=== PATIENT | male | born 1955 | race Caucasian/White ===

== ENCOUNTER 2019-03-10 18:38 | Observation (INO) ==
[2019-03-10 19:19] LABS: BASO# 0.02 X1000 (0.0-0.2); BASO% 0.2 % (0.0-0.8); EOS# 0.18 X1000 (0.0-0.7); HEMATOCRIT 38.9 % (42.0-52.0); HEMOGLOBIN 12.9 g/dL (14.0-18.0); LYMPH# 2.38 X1000 (1.2-3.4); MCH 29.9 PG (27-31); MCHC 33.2 g/dL (33-37); MONO# 0.76 X1000 (0.11-0.59); MONO% 8.6 % (1.7-9.3); MPV 11.9 FL (7.4-10.4); NEUT# 5.46 X1000 (1.4-6.5); NEUT% 62.2 % (42.2-75.2); PLT 213 X1000 (130-400); RBC 4.32 XMIL (4.7-6.1); RDW 15.1 % (11.5-14.5)
[2019-03-10] MEDS ORDERED: D50W SYRINGE IV ONE (19:26)
[2019-03-10 19:32] LABS: ALB/GLOB RATIO 1.5; ALBUMIN 4.4 g/dL (3.5-5.0); CALCIUM 9.4 mg/dL (8.8-10.2); CREATININE 2.9 mg/dL (0.7-1.2); TOTAL BILIRUBIN 0.24 mg/dL (0.20-1.00); TOTAL PROTEIN 7.4 g/dL (6.3-8.3)
[2019-03-10 21:38] LABS: URINE SOURCE VOIDED
[2019-03-10 21:45] LABS: BILIRUBIN URINE NEGATIVE (NEGATIVE); BLOOD URINE NEGATIVE (NEGATIVE); COLOR STRAW; GLUCOSE URINE NEGATIVE (NEGATIVE); KETONE URINE NEGATIVE (NEGATIVE); LEUKOCYTES URINE NEGATIVE (NEGATIVE); NITRITE URINE NEGATIVE (NEGATIVE); PH URINE 5.5; PROTEIN URINE NEGATIVE (NEGATIVE); SP GRAVITY URINE 1.013; TURBIDITY URINE CLEAR (CLEAR); UR EPITHELIAL CELLS <10 /HPF (<10); URINE BACTERIA NEGATIVE /HPF; URINE RBC <10 /HPF (<10); URINE WBC <10 /HPF (<10); UROBILINOGEN URINE NORMAL (NORMAL)
--- NOTE | 2019-03-10 22:50 | PROVIDER DOCUMENTATION ---
This chart was entered by Paulette Lopez Scribe, acting as scribe for Sanchez Michelle MD. HPI-General Adult - General Chief Complaint: Fatigue Stated Complaint: "FEELS BAD" Time Seen by Provider: 03/10/19 20:05 Source: patient Allergies/Adverse Reactions: Patient Allergies Allergy/AdvReac Type Severity Reaction Status Date / Time No Known Allergies Allergy Verified 03/10/19 19:48 Home Medications: Home Medication List Medication Instructions Recorded Confirmed Last Taken Type AMLODIPINE/BENAZEpril [Lotrel 10/23 1 each PO DAILY 12/11/13 03/10/19 03/10/19 08:00 History mg] Glimepiride 4 mg PO DAILY 12/11/13 03/10/19 03/10/19 08:00 History Tamsulosin [Flomax] 0.4 mg PO DAILY #10 capsule 12/11/13 03/10/19 03/10/19 08:00 Rx Allopurinol [Zyloprim] 1 dose PO DAILY 03/10/19 03/10/19 03/10/19 08:00 History Aspirin 1 dose PO DAILY 03/10/19 03/10/19 03/10/19 08:00 History Pioglitazone [Actos] 1 dose PO DAILY 03/10/19 03/10/19 03/10/19 08:00 History Simvastatin 1 dose PO DAILY 03/10/19 03/10/19 Unknown History Triamterene/Hydrochlorothiazid 1 dose PO DAILY 03/10/19 03/10/19 03/10/19 08:00 History [Triamterene-Hctz 37.5-25 mg Cp] - History of Present Illness -Gen Adult Nature of Presenting Problems: Pt is 63/m presenting to ED w/ dizziness that has worsened throughout the day, sts that he feels dizzy when he bends over and off balance when he stands back up. Pt has NIDDM and FSBS was 46. Pt was given D50 and has eaten crackers and had some orange juice. Sts that he has been following a keto like diet recently as well. Last A1C was 6.1. Location of Pain/Injury: reports: generalized Pain Radiation: reports: no radiation Quality of Pain: reports: none Severity: reports: moderate Onset/Duration: reports: this morning Timing: reports: improving Context/Activities at Onset: reports: none Modifying Factors: improves with: eating Associated Symptoms: reports: dizziness. denies: nausea, shortness of breath, weakness, trouble walking Similar Symptoms Previously?: No Recently seen or treated by another doctor?: No - Diabetes Related Context Context: reports: low blood sugar (46) Review of Systems - Adult - REVIEW OF SYSTEMS - ADULT Constitutional: reports: no symptoms reported. denies: chills, fever Eyes: reports: no symptoms reported Ears, Nose, Mouth & Throat: reports: no symptoms reported Cardiovascular: reports: no symptoms reported. denies: chest pain Respiratory: denies: shortness of breath, wheezing Gastrointestinal: reports: no symptoms reported. denies: abdominal pain, nausea, vomiting Genitourinary: reports: no symptoms reported Musculoskeletal: reports: no symptoms reported Integumentary: reports: no symptoms reported Neurological: reports: dizziness/vertigo. denies: headache/migraines, slurred speech, syncope Psychiatric: reports: no symptoms reported Endocrine: reports: no symptoms reported Hematologic/Lymphatic: reports: no symptoms reported Allergic/Immunologic: reports: no symptoms reported All Other Systems: Reviewed and Negative Past History - Adult - PAST MEDICAL HISTORY-ADULT Review of Records: reports: Old Records Reviewed, Nursing Assessment Review, Medications Reviewed, Social history reviewed & non-contributory. Major Childhood Illnesses: reports: denies history Cardiovascular: reports: HTN, hyperlipidemia Respiratory: reports: denies history Gastrointestinal: reports: denies history Obstetrical/Gynecological: reports: denies history Genitourinary: reports: denies history Musculoskeletal: reports: denies history Neurological: reports: denies history Endocrine/Immune: reports: Diabetes Other Conditions: reports: denies history - PRIOR SURGERIES/PROCEDURES Surgical/Procedure History: reports: hernia repair, orthopedic (extremity) - IMMUNIZATION STATUS Childhood Immunizations: See Nurse Assessment Flu Vaccine: See Nurse Assessment - FAMILY HISTORY Family History: reviewed, not pertinent - SOCIAL HISTORY Smoking: chew Provider spent 3-5 mins advising pt. on dangers of tobacco.: Discussed manners to quit use, and f/u contacts for add'l counseling. Substance Use: none/never Alcohol Use Frequency: occasionally Living Situation: family Physical Exam-General - PHYSICAL EXAM-ADULT Initial Vital Signs Reviewed: Yes - CONSTITUTIONAL General Appearance: appears well, alert, no apparent distress, obese - EYES Eyes: PERRL/EOMI, pink conjunctivae - HEAD, EARS, NOSE, MOUTH & THROAT HENMT: normocephalic/atraumatic, moist mucous membranes, normal ENT inspection - NECK Neck: non-tender, full range of motion, supple, normal inspection - RESPIRATORY Respiratory: lungs clear - CARDIOVASCULAR Cardiovascular: regular rate, rhythm - GASTROINTESTINAL (ABDOMEN) Abdominal Exam: soft - MUSCULOSKELETAL Back Exam: normal inspection Extremity: normal range of motion, non-tender, normal gait, normal inspection - SKIN Integumentary: normal color, warm/dry - NEUROLOGIC Neurologic: grossly normal - PSYCHIATRIC Psych/Mental Status: normal mood/affect, normal thought content, normal thought process, oriented x 3 Progress - PLAN OF CARE/RESULTS Progress/Plan/Lab Results: Vital Signs - 8 hr 03/10/19 18:43 Temperature 97.5 F L Pulse Rate 95 H Respiratory Rate 16 Blood Pressure 129/69 O2 Sat by Pulse Oximetry 97 Laboratory Results - last 24 hr 03/10/19 03/10/19 03/10/19 18:45 18:45 19:23 WBC 8.80 RBC 4.32 L Hgb 12.9 L Hct 38.9 L MCV 90.0 MCH 29.9 MCHC 33.2 RDW Std Deviation 15.1 H Plt Count 213 MPV 11.9 H Immature Gran % (Auto) 0.0 Neut % (Auto) 62.2 Lymph % (Auto) 27.0 Crawford % (Auto) 8.6 Eos % (Auto) 2.0 Baso % (Auto) 0.2 Immature Gran # (Auto) 0.00 Neut # (Auto) 5.46 Lymph # (Auto) 2.38 Crawford # (Auto) 0.76 H Eos # (Auto) 0.18 Baso # (Auto) 0.02 Sodium 141 Potassium 4.0 Chloride 110 H Carbon Dioxide 18 L Anion Gap 13 BUN 68 H Creatinine 2.9 H Estimated GFR/1.73 m2 22 BUN/Creatinine Ratio 23 Glucose 48 L POC Glucose 46 L Calculated Osmolality 298 Calcium 9.4 Total Bilirubin 0.24 AST 25 ALT 22 Alkaline Phosphatase 85 Total Protein 7.4 Albumin 4.4 Globulin 3.0 Albumin/Globulin Ratio 1.5 Orders Category Date Time Status CBC WITH ELECTRONIC DIFF [HEME] Stat Lab 03/10/19 18:45 Completed COMPREHENSIVE METABOLIC PANEL [CHEM] Stat Lab 03/10/19 18:45 Completed URINALYSIS [URINALYSIS] Stat Lab 03/10/19 18:49 Uncollected Dextrose 50% Syringe [D50w Syringe] Med 03/10/19 19:26 Discontinued 50 ml IV NOW ONE Generalized Adult Illness >60 Stat Oth 03/10/19 18:48 Ordered EKG [EKG] Stat Ther 03/10/19 18:48 Ordered Result Diagrams: 03/10/19 18:45 03/10/19 18:45 Departure - Departure Date of Disposition Decision: 03/10/19 Time of Disposition Decision: 22:50 DIAGNOSIS: Hypoglycemia, DELORES (acute kidney injury) Disposition: ADMITTED INPATIENT 09 Certified Medical Emergency: Emergent Condition: Stable Referrals and Follow-Ups: Mike Crowe MD [Primary Care Provider] - - Critical Care Note This patient required my direct & personal management of CC.: No Attestation - Physician/ EMILY Attestation Patient care was provided by Advanced Practice Provider:: No The physician spent face to face time with patient:: Yes Advanced Practice Provider documentation review:: Supervising physician onsite and consulted in the evaluation and care of this patient. The physician did have a face to face encounter with the patient. This chart was documented by the indicated scribe, (Paulette Lopez, Madhaviibjosey) and accurately reflects the services I performed and decisions made by me, Sanchez Michelle MD, as attested by the provider's signature.
[2019-03-10] MEDS ORDERED: ZOFRAN IV PRN (23:39)
[2019-03-10] MEDS ORDERED: TYLENOL PO PRN (23:39)
[2019-03-11] MEDS: NS 1,000 ML IV SCH ×2 (00:56→08:54)
--- NOTE | 2019-03-11 03:12 | HISTORY AND PHYSICAL ---
CHIEF COMPLAINT: Hypoglycemia. HISTORY OF PRESENT ILLNESS: Patient is a very pleasant 63-year-old male who unfortunately earlier had an episode of being off balance, dizzy and irritability. He has a known history of diabetes for which he takes metformin and glimepiride. He apparently has been changing his diet. He has been eating mainly an Atkins diet, but does not check his blood sugar at home. He became irritated, agitated, very difficult to deal with. He became quite argumentative. They checked his blood sugar and it was 46. Apparently, his last A1c was 6.1. ALLERGIES: No known drug allergies. MEDICATIONS: Lotrel 520 daily, glimepiride 4 mg daily, Flomax 0.4 daily, allopurinol, aspirin, Actos, simvastatin, triamterene/hydrochlorothiazide and patient also notes that he takes metformin. PAST MEDICAL HISTORY: Significant for diabetes, hypertension, hyperlipidemia. He has had a hernia repair and orthopedic surgery in the past. He has gout and BPH. REVIEW OF SYSTEMS: As noted above. PHYSICAL EXAMINATION: GENERAL: Currently, he is awake, alert. He is in no current respiratory distress. He is very pleasant to talk with. HEENT: Normocephalic, atraumatic. DONALD. NECK: Supple. No JVD. CARDIOVASCULAR: Regular rate. No murmurs. CHEST: Clear and nonlabored. ABDOMEN: Soft, nondistended, obese, nontender. EXTREMITIES: Moves all extremities. NEUROLOGIC: No focal neurological changes. SKIN: Warm and dry. No rashes. LABORATORIES: CBC, CMP reviewed. Glucose was 48 initially, currently 140s. Creatinine 2.9 with his most recent baseline per the family around 1.5 to 1.9. ASSESSMENT: 1. Acute on chronic renal failure. 2. Metabolic acidosis. 3. Hypoglycemia iatrogenically caused secondary to dietary changes and glimepiride. 4. Diabetes with fairly good home control with an A1c at 6.1. 5. Hypertension. 6. Gout. 7. Hyperlipidemia. 8. Benign prostatic hypertrophy. PLAN: We are going to admit patient to the hospital, place him on fingersticks. We will restart IV fluids. He does have a history of kidney failure for which he is supposed to see Dr. Kumar in a few days. If his kidneys are improved in the morning, we can discharge him home. If not, certainly may need to consider consulting Dr. Kumar at that point. We are going to restart his home medications. Given his kidney function, if he is in fact still on metformin we are going to hold this. We will hold his diuretics as well as his glimepiride. Discussed with patient the importance of staying away from anti-inflammatories and we will follow. cc: MD Mike Mcmullen MD
[2019-03-11 05:43] LABS: HEMATOCRIT 36.4 % (42.0-52.0); HEMOGLOBIN 11.9 g/dL (14.0-18.0); MCH 29.7 PG (27-31); MCHC 32.7 g/dL (33-37); MCV 90.8 FL (81-99); MPV 11.4 FL (7.4-10.4); RBC 4.01 XMIL (4.7-6.1); RDW 15.3 % (11.5-14.5); WBC 5.57 X1000 (4.8-10.8)
[2019-03-11 06:17] LABS: ALB/GLOB RATIO 1.6; ALBUMIN 3.9 g/dL (3.5-5.0); CALCIUM 9.2 mg/dL (8.8-10.2); CREATININE 2.7 mg/dL (0.7-1.2); POTASSIUM 4.4 mmol/L (3.5-5.1); TOTAL BILIRUBIN 0.32 mg/dL (0.20-1.00); TOTAL PROTEIN 6.4 g/dL (6.3-8.3)
[2019-03-11] MEDS ORDERED: HUMALOG SUBQ SCH (07:00)
[2019-03-11] MEDS ORDERED: FLOMAX PO SCH (09:00)
[2019-03-11] MEDS ORDERED: ZYLOPRIM PO SCH (09:00)
[2019-03-11] MEDS ORDERED: ACTOS PO SCH (09:00)
[2019-03-11] MEDS ORDERED: ASPIRIN PO SCH (09:00)
[2019-03-11] MEDS ORDERED: ZOCOR PO SCH (09:00)
[2019-03-11 12:48] VITALS: BP 115/56
--- NOTE | 2019-03-11 14:59 | DISCHARGE SUMMARY ---
ADMISSION DATE: 03/11/2019 DISCHARGE DATE: 03/11/2019 HISTORY AND HOSPITAL COURSE: Mr. Jimenez was admitted early this morning. He is a patient of Dr. Mike Crowe. This 63-year-old who came in with hypoglycemia. Unfortunately, earlier had an episode of being off-balance, dizzy, and inability to get his balance. He has a known history of diabetes for which he takes metformin and glimepiride. Apparently, he has changed his diet and trying to lose some weight, mainly on the Atkins diet. He is scheduled to see Dr. Kumar I think for renal dysfunction. He became quite argumentative and they checked his blood sugar and it was 46. Hemoglobin A1c was 6.1. No known drug allergies. No other adverse lab. His creatinine was 2.9 most recent. It has been between 1.5 and 1.9. DISCHARGE DIAGNOSES: 1. Acute on chronic renal failure with hyperglycemia. He felt better today and able to get down liquids and food. 2. Metabolic acidosis. 3. Hypoglycemia. We will stop the glimepiride. 4. Hemoglobin A1c was 6.1. He wants to go home. We will let him go home. He is going to follow up with Dr. Kumar and follow up with Dr. Crowe. DISCHARGE MEDICATIONS: He will be on amlodipine combination with benazepril 5/20 one a day, aspirin 81 mg a day. We will stop the glimepiride. He is on Actos 1 a day. Also have him stop the Actos as well as simvastatin 1 dose daily. Flomax 0.4 mg daily. He can continue the triamterene hydrochlorothiazide 1 a day. cc: MD Mike Douglass MD
== END 2019-03-11 15:08 | disposition home or self-care (01) ==
LOC: ED 18:38 → SUATTDRO 03-11 00:35 → INTOOBSV 03-11 00:35 → 1N 03-11 00:35
PROVIDERS: ADMIT Internal Medicine; ATTEND Internal Medicine